=== PATIENT | female | born 1955 | race Caucasian/White ===

== ENCOUNTER → 2016-06-19 | Outpatient (CLI) | payer OTHER ==
[~2016-06-19] MED LIST: AMLODIPINE BESYL5 MG PO; METOPROLOL SUCC50 MG PO; MULTI-VITAMIN1 EAC1 PO; NEXIUM PO; TRIAMTERENE-HC1 EACH PO
--- NOTE | ~2016-06-19 | US85 ---
[facility] A Service [facility] RADIOLOGY TEXT RESULTS PATIENT: MATTHEW PANDA LOCATION: [facility] : 51 UNIT #: [id number] AGE: [address]: Doreen Nixon MD SEX: F ORDER DR: [id number] [id number] O MR#: [id number] Acc #: [id number] NAME: MATTHEW PANDA : 1955 SEX: F STUDY DATE/TIME: 06/19/2016 11:09 UNIT: SRAD ROOM: STUDY DESCRIPTION: [facility] Attending Physician: Doreen Nixon M.D. Referring Physician: Doreen Nixon M.D. Ordering Physician: Doreen Nixon M.D. Primary Care Physician: Doreen Nixon M.D. MEDICAL IMAGING REPORT This report is preliminary unless electronic signature is present. EXAM Unilateral left lower extremity venous Doppler date of study 06/19/2016 HISTORY Left leg pain, tenderness and swelling for 2 weeks. COMPARISON None TECHNIQUE Venous ultrasound examination of the left lower extremity was performed using grayscale, spectral Doppler and color flow Doppler imaging. FINDINGS The examination is negative. There is no evidence of left lower extremity deep venous thrombus from the groin to the lower calf. Visualized greater saphenous vein is also patent. IMPRESSION Negative examination. No evidence of left lower extremity deep venous thrombosis. Dictated by... Dilshad Fishman M.D. THIS IS AN ELECTRONICALLY VERIFIED REPORT Dilshad Fishman M.D. at 06/23/2016 10:35 AM ZACH/rnr TD: 06/19/2016 15:02 [facility] A Service [facility] RADIOLOGY TEXT RESULTS PATIENT: MATTHEW PANDA LOCATION: [facility] : 51 UNIT #: [id number] AGE: [address]: Doreen Nixon MD SEX: F ORDER DR: KIT #: [id number] MEDICAL IMAGING REPORT Page 1 of 1
== END | disposition home or self-care (01) ==
LOC: SRAD 10:54
DX: I80.9 Phlebitis and thrombophlebitis of unspecified site (principal)
CPT/HCPCS: 93971

== ENCOUNTER → 2016-10-10 | Outpatient (CLI) | payer OTHER ==
--- NOTE | ~2016-10-10 | MY29 ---
[facility] A Service of [facility] RADIOLOGY TEXT RESULTS PATIENT: MATTHEW PANDA LOCATION: [facility] : 51 UNIT #: [id number] AGE: [address]: Doreen Nixon MD SEX: F ORDER DR: [id number] [id number] [facility]. [place], [place] [address] [id number] O MR#: [id number] Acc #: [id number] NAME: MATTHEW PANDA : 1955 SEX: F STUDY DATE/TIME: 10/10/2016 9:53 UNIT: [facility] ROOM: STUDY DESCRIPTION: MY SOBEIDA SCREENING W/ CAD BILAT Attending Physician: Doreen Nixon M.D. Referring Physician: Doreen Nixno M.D. Ordering Physician: Doreen Nixon M.D. Primary Care Physician: Doreen Nixon M.D. MEDICAL IMAGING REPORT This report is preliminary unless electronic signature is present EXAM Bilateral digital screening mammogram with CAD 10/10/2016 HISTORY Family history of breast cancer in a sister. No personal history of breast cancer. No current complaints. COMPARISON Bilateral screening mammogram 04/25/2015, 01/25/2014. FINDINGS CC and MLO views were obtained of each breast utilizing digital technique and reviewed a FDA-approved CAD device. The left breast is smaller than the right, unchanged. Subareolar fibroglandular dominance in the left breast, predominately in the 12-1 o'clock axis, appears increased compared to more remote studies from 08/10/2012 and 01/25/2014. No associated architectural distortion or clustered microcalcification is seen. Breast parenchyma demonstrates scattered fibroglandular tissue. IMPRESSION 1. BIRADS 0. Additional imaging required. Subareolar density in the 12-1 o'clock axis of the left breast appears increased since the more remote 2013 and 2012 examinations. While I suspect it may represent a benign etiology, such as ductal ectasia, additional investigation is warranted. Spot compression of the left breast in the MLO plane, along with rolled views would be recommended, along with diagnostic left breast ultrasound. [facility] A Service of [facility] RADIOLOGY TEXT RESULTS PATIENT: MATTHEW PANDA LOCATION: [facility] : 51 UNIT #: [id number] AGE: [address]: Doreen Nixon MD SEX: F ORDER DR: BIRADS: 0 Incomplete; Need additional imaging evaluation and/or prior mammograms for comparison. Patients over the age of 40 are entered into a reminder system with target due date for the next mammogram. A result letter will also be sent to the patient. Dictated by... Rosalie Barbosa M.D. THIS IS AN ELECTRONICALLY VERIFIED REPORT Rosalie Barbosa M.D. at 10/15/2016 3:26 PM SURAJ/lidia TD: 10/10/2016 21:56 JOB #: [id number] MEDICAL IMAGING REPORT Page 1 of 1 COPY
== END | disposition home or self-care (01) ==
LOC: CWCC 09:24
DX: Z12.31 Encounter for screening mammogram for malignant neoplasm of breast (principal); Z80.3 Family history of malignant neoplasm of breast; R92.8 Other abnormal and inconclusive findings on diagnostic imaging of breast
CPT/HCPCS: G0202